=== PATIENT | female | born 2000 | race Caucasian/White ===

== ENCOUNTER 2021-06-21 23:08 | Emergency (ER) | payer BC, SELFPAY ==
[2021-06-21 23:13] VITALS: BP 139/95; PULSE 88; RESP 14; TEMP 36.7; O2SAT 99; BMI 25.9
--- NOTE | 2021-06-22 00:20 | RAD_ITS ---
EXAM: XR RIGHT ANKLE COMPLETE, 3 OR MORE VIEWS : 2001 CLINICAL INDICATION: pain TECHNIQUE: Frontal, lateral and oblique views of the right ankle. This report was created using [employer] report generation technology. COMPARISON: None. FINDINGS: BONES/JOINTS: Unremarkable. No acute fracture. No subluxation. Normal alignment. Preservation of the joint space. No sclerotic or destructive changes observed. SOFT TISSUES: Unremarkable. No soft tissue swelling or gas. No radiopaque foreign body. RAD/Ankle min 3 Views IMPRESSION: Negative right ankle x-rays. at 0051 Reported and signed by: Ozzie Rodas MD Electronically Signed: Ozzie Rodas MD at 0:51 EST ,
--- NOTE | 2021-06-22 01:50 | EX.ED.DYSGE1 ---
HPI History of Present Illness Chief Complaint: Lower Extremity Injury Narrative Narrative: Patient is a 21-year-old who was playing soccer today. She reports that she was sprinting down the field and did not feel any pain until she started to slow down to stop. She states that her ankle did not roll and she denies any direct trauma to it. She states as she was stopping she noticed pain along the lateral aspect of the right ankle. She states that its been continuing to bother her for the past few hours and secondary to this she presents for evaluation. PFSH PFSH Medical History no medical history Home Medications methocarbamol 1,000 mg PO 4X/DAY PRN PRN #56 tab 06/22/21 [Rx Last Taken Unknown] Allergy/AdvReac Type Severity Reaction Status Date / Time No Known Allergies Allergy Verified 06/21/21 23:13 Surgical History no surgical history Social History Smoking Status: Never smoker ROS ROS ED Constitutional Constitutional ED: Denies chills or fever(s) ENT ENT ED: Denies sore throat Cardiovascular Cardiovascular: Denies chest pain Respiratory/Chest Respiratory/Chest: Denies cough or dyspnea Gastrointestinal Gastrointestinal: Denies abdominal pain, diarrhea, nausea or vomiting Genitourinary Genitourinary ED: Denies dysuria Musculoskeletal Musculoskeletal: Reports other Details: Positive right ankle pain ; Denies myalgias Integumentary Denies rash Neurologic Neurologic: Denies headache(s) Hematologic/Lymphatic Hematologic/Lymphatic: Denies easy bleeding or easy bruising EXAM Physical Exam Const Vital Signs: 06/21/21 23:13 06/22/21 02:00 Temperature 98.1 F Temperature Source Temporal Pulse Rate 88 71 Respiratory Rate 14 15 Blood Pressure 139/95 H Blood Pressure Mean 109 Pulse Ox 99 97 Oxygen Delivery Method Room Air Positive well nourished and well developed General Appearance ED: well developed Eyes PERRL and EOMs intact bilaterally Neck supple Resp normal respiratory effort and clear to auscultation bilaterally Cardio regular rate and regular rhythm Extremity Extremity Narrative: Right lower extremity is neurovascularly intact. Ankle ligaments are stable and Achilles tendon is intact as well. There is no obvious bony deformity or joint effusion. There is pain with palpation just above the right lateral malleolus into the proximal third portion of the calf. Remainder the exam is normal. Neuro oriented x3 and CN's II-XII intact bilaterally Sensorium / Orientation: alert Psych mental status grossly normal Skin no rashes or lesions noted Skin Narrative: No overlying erythema warmth abrasions or ecchymosis noted MDM MDM MDM Narrative Medical decision making narrative: Patient reported pain in the lateral aspect of her right ankle with no known trauma. By exam she does not have any signs of Achilles tendon rupture. With the pain along the lateral aspect ankle did elect to perform an x-ray which reveals no acute finding. At this time I feel patient has a grade 1 ankle sprain versus muscular strain and she will be given symptomatic treatment and discharged home. Radiography Diagnostic Testing: Clinical Impression(s) from Imaging Studies Ankle X-Ray 06/22/21 00:20 IMPRESSION: Negative right ankle x-rays. at 0051 Reported and signed by: Ozzie Rodas MD Electronically Signed: Ozzie Rodas MD at 0:51 EST , Discharge Plan Triage Chief Complaint: Lower Extremity Injury ED Provider: Estuardo Hopson Dx/Rx/DC Orders Clinical Impression: Right ankle sprain Instructions: ED Ankle Sprain (Adult) Prescriptions: New methocarbamol 500 mg tablet 1,000 mg PO 4X/DAY PRN PRN (Reason: Muscle pain/spasm) Qty: 56 RF: 0 Primary Care Provider: Care Physician,No Primary Referrals: Miki Ferrera MD [STAFF PHYSICIAN] - 1 Week if not improving Care Physician,No Primary [Primary Care Provider] - Disposition Disposition: Home, Self Care Discharge Date/Time: 06/22/21 02:31
[2021-06-22 02:00] VITALS: PULSE 71; RESP 15; O2SAT 97
== END 2021-06-22 02:31 | disposition home or self-care (01) ==
PROVIDERS: Emergency Provider Emergency Medicine; Visit Provider Emergency Medicine
DX: S93.401A Sprain of unspecified ligament of right ankle, initial encounter (principal); X58.XXXA Exposure to other specified factors, initial encounter; Y93.66 Activity, soccer; Y92.9 Unspecified place or not applicable
CPT/HCPCS: 73610; 99283